=== PATIENT | male | born 1990 | race Hispanic/Latino ===

== ENCOUNTER 2016-07-09 10:13 | Emergency (ER) | payer OTHER ==
[2016-07-09 10:32] VITALS: BP 123/76
--- NOTE | 2016-07-09 13:22 | Emergency Department Report ---
Entered by CAMILLE DENIS, acting as scribe for NIA JOHNS PA. HPI - General Chief Complaint: Upper Respiratory Infection Time Seen by Provider: 07/09/16 11:15 - HPI HPI: 26 year old male patient presents for evaluation of URI symptoms for a week. Reports sore throat, rhinorrhea and nasal congestioin for the past 3 weeks. No fever, chills, but confirms a cough and chest discomfort with the cough. Reports no relief with OTC meds (Sudafed Decongestant and Theraflu). ED Past Medical Hx - Past Medical History Previous Medical History?: No - Surgical History Past Surgical History?: No - Family History Family history: diabetes, hypertension - Social History Smoking Status: Former Smoker Substance Use Type: Alcohol, Marijuana, Other - Medications Home Medications: Home Medications Medication Instructions Recorded Confirmed Last Taken Type Amoxicillin/K Clav Tab [Augmentin 1 tab PO Q12HR #20 tab 07/09/16 Unknown Rx 875 mg] Cetirizine HCl [ZyrTEC] 10 mg PO QAM #10 capsule 07/09/16 Unknown Rx Fluticasone [Flonase] 1 spray NS QDAY #1 bottle 07/09/16 Unknown Rx ED Review of Systems ROS: Stated complaint: FLU SX Other details as noted in HPI Comment: All other systems reviewed and negative Constitutional: denies: chills, fever ENT: throat pain, congestion. denies: ear pain Respiratory: cough. denies: shortness of breath, wheezing Cardiovascular: denies: chest pain, palpitations Gastrointestinal: denies: abdominal pain, nausea, vomiting Musculoskeletal: denies: back pain, arthralgia Skin: denies: rash Neurological: denies: headache, numbness, paresthesias, abnormal gait Physical Exam - Physical Exam Vital Signs: Vital Signs 07/09/16 10:28 Temperature 98.7 F Pulse Rate 88 Respiratory 18 Rate Blood Pressure 123/76 O2 Sat by Pulse 99 Oximetry General: 26 y/o male patient, well appearing,no apparent distress Physical Exam: Physical Exam: Head: Normocephalic, atraumatic Mouth: Moist, no pharyngeal exudate or erythema. Uvula is midline and oral airway is patent. No facial swelling. No peritonsillar abscesses. Nose: Normal external appearance,redness and swelling to nasal mucosa with clear drainage. Maxillary and frontal sinuses nontender to palpation Neck: Supple, no C-spine tenderness, no tracheal deviation. Nontender to palpation. no adenopathy Ears: Bilateral TMs congested without any redness, swelling, or drainage. Bilateral EAC without any redness, swelling, or drainage. Abdomen: Soft, nontender to palpation in all quadrants, normal bowel sounds in all quadrants and negative CVA tenderness bilaterally. Eyes: Bilateral pupils equal and reactive to light, bilateral EOM intact. Bilateral sclera and conjunctiva without injection. Normal accommodation. Lungs: Clear to auscultation bilaterally, no rhonchi, wheezes, or rales. Normal work of breathing. No use of accessory muscles Extremities: No CCE. +2 pulses. No neurovascular compromise Cardiovascular: S1-S2, regular rate, regular rhythm. No murmurs. Skin: Clean, dry, and intact with no rash and no lesions Psych: Normal mood and behavior ED Course Vital Signs 07/09/16 10:28 Temperature 98.7 F Pulse Rate 88 Respiratory 18 Rate Blood Pressure 123/76 O2 Sat by Pulse 99 Oximetry - Reevaluation(s) Reevaluation #1: 07/09/16 13:07 Stable throughout ED stay ED Medical Decision Making - Medical Decision Making ED course: Sent here for upper respiratory infection diagnosed with sinusitis that has been going on for 3 weeks. Discharged home and family member in stable condition I discussed diagnosis and treatment plan the patient. prescription for Augmentin, flonase and zyrtec. Critical care attestation.: If time is entered above; I have spent that time in minutes in the direct care of this critically ill patient, excluding procedure time. ED Disposition Clinical Impression: Coughing Acute sinusitis Qualifiers: Sinusitis location: unspecified location Recurrence: recurrent Qualified Code(s ): J01.91 - Acute recurrent sinusitis, unspecified Pharyngitis Qualifiers: Pharyngitis/tonsillitis etiology: unspecified etiology Qualified Code(s): J02.9 - Acute pharyngitis, unspecified Disposition: DISCHARGED TO HOME OR SELFCARE Is pt being admited?: No Does the pt Need Aspirin: No Condition: Stable Instructions: Pharyngitis (ED), Acute Cough (ED), Sinusitis (ED) Additional Instructions: Please follow up with her primary care physician in 5 days and if he do not have a primary care physician follow-up with outside Medical Center. medication as prescribed Increase your fluid intake Prescriptions: Amoxicillin/K Clav Tab [Augmentin 875 mg] 1 tab PO Q12HR #20 tab Cetirizine HCl [ZyrTEC] 10 mg PO QAM #10 capsule Fluticasone [Flonase] 1 spray NS QDAY #1 bottle Referrals: PRIMARY CARE, [Primary Care Provider] - 07/14/16 [facility] [Outside] - 07/14/16 Forms: Work/School Release Form(ED), Accompanied Note This documentation as recorded by the ADEEL damon SHALANE,accurately reflects the service I personally performed and the decisions made by me,NIA JOHNS PA.
== END 2016-07-09 13:30 | disposition home or self-care (01) ==
LOC: ED 10:13
DX: J01.91 Acute recurrent sinusitis, unspecified (principal); J02.9 Acute pharyngitis, unspecified; F12.10 Cannabis abuse, uncomplicated; Z87.891 Personal history of nicotine dependence
CPT/HCPCS: 99282